=== PATIENT | female | born 1960 | race Caucasian/White ===

== ENCOUNTER 2016-07-07 21:09 | Emergency (ER) | payer OTHER ==
[~2016-07-07] VITALS: Ht 154.9 cm; Wt 83.9 kg
[~2016-07-07 21:09] MED LIST: ADVAIR 250/501 DISK IH; BACLOFEN10 MG PO; BUPROPION HCL100 MG PO; BUSPAR15 MG PO; CATAPRES0.1 MG PO; CELEBREX200 MG PO; CLONAZEPAM1 MG PO; CLONIDINE HCL0.2 MG PO; CLOTRIMAZOLE15 GM TP; DESYREL300 MG PO; EFFEXOR37.5 MG PO; ESCITALOPRAM OX20 MG PO; FUROSEMIDE20 MG PO; GABAPENTIN800 MG PO; LEXAPRO20 MG PO; LYRICA75 MG PO; PRILOSEC20 MG PO; PROAIR HFA8.5 GM IH; SIMVASTATIN40 MG PO; TRAZODONE HCL150 MG PO; VENLAFAXINE H37.5 M3 PO; WELLBUTRIN100 MG PO; ZYRTEC10 M3 PO
[2016-07-07] MEDS ORDERED: FUROSEMIDE20 MG PO (22:37)
[2016-07-07] MEDS ORDERED: PERCOCET 5/31 TABLET PO (22:38)
[2016-07-07] MEDS ORDERED: ADVAIR 250/501 DISK IH (22:39)
[2016-07-07] MEDS ORDERED: SINGULAIR10 MG PO (22:40)
[2016-07-07 23:26] VITALS: BP 126/84
== END 2016-07-07 23:27 | disposition home or self-care (01) ==
LOC: EME 21:09 → EXP 21:09
PROC: 2W3VX1Z Immobilization of Left Toe using Splint (ICD-10-PCS; principal; 2016-07-07)
DX: S92.515A Nondisplaced fracture of proximal phalanx of left lesser toe(s), initial encounter for closed fracture (principal); W18.40XA Slipping, tripping and stumbling without falling, unspecified, initial encounter; Z88.6 Allergy status to analgesic agent
CPT/HCPCS: 73630; 99281; 99284